=== PATIENT | female | born 2000 | race Caucasian/White ===

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

== ENCOUNTER 2020-01-19 12:29 | Emergency (ER) | payer OTHER ==
[~2020-01-19 12:29] MED LIST: CIPRO500 MG PO; PROTONIX20 MG PO
[2020-01-19 12:42] VITALS: Ht 172.7 cm
[2020-01-19] MEDS ORDERED: ATARAX 25 MG TA25 MG PO (13:00)
[2020-01-19] MEDS ORDERED: ZPAK PO (13:00)
[2020-01-19] MEDS ORDERED: MEDROL DOSE PACK4 MG PO (13:00)
[2020-01-19 14:01] VITALS: BP 135/82
== END 2020-01-19 14:02 | disposition home or self-care (01) ==
LOC: D.ER 12:29
DX: J06.9 Acute upper respiratory infection, unspecified (principal); R05 Cough; J45.909 Unspecified asthma, uncomplicated; K21.9 Gastro-esophageal reflux disease without esophagitis; R09.89 Other specified symptoms and signs involving the circulatory and respiratory systems